=== PATIENT | male | born 1975 | race Caucasian/White ===

== ENCOUNTER 2022-03-04 15:38 | Emergency (ER) | payer BC ==
[~2022-03-04] VITALS: Ht 165.1 cm; Wt 73.0 kg
[2022-03-04 15:40] VITALS: BP 117/82
[2022-03-04] MEDS ORDERED: CYCLOBENZAPRINE 10MG TABLET PO ONE (16:15)
[2022-03-04] MEDS ORDERED: LIDOCAINE 5% PATCH TOP SCH (16:15)
[2022-03-04] MEDS ORDERED: KETOROLAC 15MG/ML VIAL IM ONE (16:15)
[2022-03-04] MEDS ORDERED: KETOROLAC 15MG/ML VIAL IM NR (16:30)
[2022-03-04] MEDS ORDERED: CYCLOBENZAPRINE 10MG TABLET PO NR (16:30)
== END 2022-03-04 18:26 | disposition left against medical advice (07) ==
LOC: ER 15:38
DX: M54.59 Other low back pain (principal)
CPT/HCPCS: 96372; 99283; J1885